=== PATIENT | female | born 1985 | race Caucasian/White ===

== ENCOUNTER 2017-10-06 03:09 | Emergency (ER) | payer SELFPAY ==
[~2017-10-06] VITALS: Ht 160 cm; Wt 61.8 kg
[2017-10-06 04:06] LABS: ALBUMIN 4.9 g/dL (3.2-5.0); ALKALINE PHOSPHATASE 138 u/l (38-126); ANION GAP 19 (6-22 (CALC)); BILIRUBIN, TOTAL 1.6 mg/dL (0.0-1.4); BUN 4 mg/dL (7-17); BUN/CREATININE RATIO 6 (12-20 (CALC)); CARBON DIOXIDE 25 mmol/l (22-30); CHLORIDE 97 mmol/l (95-108); CREATININE 0.7 mg/dL (0.5-1.0); ETHYL ALCOHOL 0 mg/dl (0-30); GFR > 60 ML/MIN (>=60 (CALC)); GFR FOR AFR.AMER. > 60 ML/MIN (>=60 (CALC)); POTASSIUM 3.1 mmol/l (3.5-5.1); SGOT/AST 156 u/l (14-36); SGPT/ALT 76 u/l (9-52); SODIUM 138 mmol/l (137-146); TOTAL PROTEIN 8.4 g/dL (6.3-8.2)
[2017-10-06 04:10] LABS: COCAINE NEGATIVE (NEGATIVE)
[2017-10-06 04:11] LABS: BARBITURATES NEGATIVE (NEGATIVE); METHADONE NEGATIVE (NEGATIVE); OXCYCODONE NEGATIVE (NEGATIVE); TETRAHYDROCANNABIONOL POSITIVE (NEGATIVE); TRICYLIC ANTIDEPRESSANTS NEGATIVE (NEGATIVE)
[2017-10-06 04:11] LABS: HEMATOCRIT 41.5 % (37.0-47.0); HEMOGLOBIN 14.9 g/dl (12.0-16.0); IMMATURE GRANULOCYTES 0.5 % (0.0-1.0); MEAN CELL VOLUME 95.4 fL CALC (80.0-100.0); MEAN CORPUSCULAR HGB 34.3 pG CALC (26.0-32.0); MEAN CORPUSCULAR HGB CONC 35.9 g/L CALC (32.0-36.0); NEUT# 6.76 thou/uL (2.00-7.15); RED BLOOD COUNT 4.35 mill/uL (4.20-5.60); RED CELL DISTRI WIDTH 12.4 % (11.5-15.5)
[2017-10-06 04:13] LABS: URINE BLOOD DIPSTICK TRACE-INTACT (NEGATIVE); URINE COLOR YELLOW; URINE GLUCOSE - DIPSTICK NEGATIVE (NEGATIVE); URINE KETONE TRACE mg/dL (NEGATIVE); URINE LEUK ESTERASE TRACE (NEGATIVE); URINE PH 6.5 (4.5-8.0); URINE PROTEIN - DIPSTICK 100 mg/dL (NEG-TRACE); URINE SPECIFIC GRAVITY >=1.030
[2017-10-06 04:14] LABS: URINE CLARITY CLEAR; URINE NITRITE - DIPSTICK POSITIVE (Negative)
[2017-10-06 04:15] LABS: URINE BILIRUBIN - DIPSTICK NEGATIVE (NEGATIVE)
[2017-10-06 04:19] LABS: URINE WBC 50-100 WBC/hpf (0-5)
[2017-10-06 04:20] LABS: URINE BACTERIA MODERATE hpf; URINE CALCIUM OXALATE CRYSTALS FEW lpf; URINE MUCUS MODERATE hpf (NONE-FEW)
[2017-10-06 04:22] LABS: MYOGLOBIN 627 ng/mL (0 - 62)
[2017-10-06] MEDS ORDERED: CIPROFLOXACN500 MG PO (06:59)
[2017-10-06] MEDS ORDERED: KEPPRA500 M2 PO (06:59)
[2017-10-06 07:24] VITALS: BP 149/98
== END 2017-10-06 07:24 | disposition left against medical advice (07) | DRG 101 ==
LOC: ED 03:09
PROVIDERS: Emergency Medicine
DX: G40.909 Epilepsy, unspecified, not intractable, without status epilepticus (principal); F17.210 Nicotine dependence, cigarettes, uncomplicated; N39.0 Urinary tract infection, site not specified; Z91.19 Patient's noncompliance with other medical treatment and regimen
CPT/HCPCS: J1953; J1956